=== PATIENT | female | born 1995 | race Caucasian/White ===

== ENCOUNTER 2019-05-10 16:19 | Inpatient (IN) | payer MEDICAID ==
[~2019-05-10] VITALS: Ht 165.1 cm; Wt 86.0 kg
[~2019-05-10 16:19] MED LIST: AMOXICILLIN500 M2 PO; AMOXICILLIN500 MG PO; AUGMENTIN 400 M1 CTB PO; BIRTH CONTROL1 EAC1 PO; CIPRODEX 0.3%-7.5 ML OT; DEPAKOTE DR500 MG; Depakote250 MG; HYDROCODONE BIT1 T11 PO; MOTRIN400 MG PO; MOTRIN800 MG PO; NAPROSYN500 MG PO; NO DAILY MEDS; ZANTAC150 MG PO; ZITHROMAX Z PA250 MG PO
[2019-05-10 16:20] VITALS: BP 154/105
--- NOTE | 2019-05-10 16:33 | NUR ---
PT PLACED ON CONTINUOUS PULSE OX, NIBP
--- NOTE | 2019-05-10 17:01 | NUR ---
PA IN TO EVALUATE PT
--- NOTE | 2019-05-10 17:04 | NUR ---
WHEN PA WENT INTO EVALUATE PT, PT ADMITTED TO PA THAT SHE VAPED
--- NOTE | 2019-05-10 17:30 | NUR ---
RAPID FLU SWAB OBATINED, ORDERED, SENT TO LAB, PT TOLERATED WELL
--- NOTE | 2019-05-10 17:40 | NUR ---
RESP IN TO ADMINISTER NEBULIZER TREATMENT, IV ACCESS ATTEMPTED X 2 UNSUCCESSFUL, 2X2 APPLIED, PRESSURE HELD, NO BLEEDING NOTED, PT TOLERATED WELL. LAB AT BEDSIDE TO DRAW LAB WORK ORDERED, UA REQUESTED
[2019-05-10 18:09] LABS: BASO # 0.1 10*3/uL (0.0-0.1); BASO % 0.8 % (0.0-1.0); EOS # 0.8 10*3/uL (0.0-0.4); EOS % 8.2 % (1.0-4.0); HEMATOCRIT 42.2 % (37.0-47.0); HEMOGLOBIN 13.3 g/dl (12.0-16.0); LYMPH # 1.7 10*3/uL (1.3-4.4); LYMPH % 18.1 % (27.0-41.0); MEAN CELL VOLUME 84.1 fl (81.0-99.0); MEAN CORPUSCULAR HGB 26.5 pg (27.0-31.0); MEAN CORPUSCULAR HGB CONC 31.5 g/dl (33.0-37.0); MONO # 0.5 10*3/uL (0.1-1.0); MONO % 5.1 % (3.0-9.0); NEUT # 6.5 10*3/uL (2.3-7.9); NEUT % 67.6 % (47.0-73.0); PLATELET COUNT AUTOMATED 274 10*3/uL (130-400); RED BLOOD COUNT 5.02 10*6/uL (4.10-5.10); RED CELL DISTRI WIDTH 13.9 % (0-14.5); WHITE BLOOD COUNT 9.6 10*3/uL (4.8-10.8)
[2019-05-10 18:22] VITALS: BP 133/85
[2019-05-10 18:25] LABS: ALBUMIN 4.3 gm/dl (3.1-4.5); ALKALINE PHOSPHATASE 151 U/L (45-117); BUN 12 mg/dl (7-24); CHLORIDE 102 mmol/L (98-107); CREATININE 0.93 mg/dL (0.55-1.02); SGOT/AST 14 IU/L (3-35); SGPT/ALT 23 U/L (12-78); SODIUM 137 mmol/L (136-145); TOTAL PROTEIN 8.8 gm/dL (6.4-8.2)
--- NOTE | 2019-05-10 18:31 | NUR ---
PT RESTING QUIETLY, STATES NEBULIZER TREATMENT HELPED, MOTHER AT BEDSIDE, CALL AMBROCIO IN REACH, WILL CONTINUE TO MONITOR PT
--- NOTE | 2019-05-10 19:10 | NUR ---
CHEST XRAY COMPLETE ORDERED
--- NOTE | 2019-05-10 19:26 | NUR ---
REPORT TO ROSA MASSEY, CARE TRANSFERRED
--- NOTE | 2019-05-10 21:24 | NUR ---
SPOKE WITH BRYSON VIVAR TO ADVISE OF ETA TO ROOM.
[2019-05-10 21:28] VITALS: BP 137/90
[2019-05-10 21:35] VITALS: BP 120/74
--- NOTE | 2019-05-10 21:35 | NUR ---
REPORT TO BRYSON VIVAR AT THE BEDSIDE.
--- NOTE | 2019-05-10 21:35 | NUR ---
A 23, admitted to , under the services of MILDAIS Baker DO with a diagnosis of CHEMICAL PNEUMONITIS. Chief complaint is SHORTNESS OF BREATH FOR AROUND 2 MONTHS WORSENING. Patient arrived via stretcher from ER. Monitor applied. Initial assessment completed. Vital signs taken and recorded. MILADIS BAKER DO notified of admission to the unit. Orders received. See assessment for past medical history, medications and allergies. Patient and/or family oriented to unit. [facility] visitation policy reviewed. Clothing/patient valuable form completed. HANS WALLS
[2019-05-11] VITALS: BP 147/73; BP 148/89
[2019-05-11 08:00] VITALS: BP 128/76
[2019-05-11 08:29] LABS: HEMATOCRIT 36.2 % (37.0-47.0); HEMOGLOBIN 11.7 g/dl (12.0-16.0); MEAN CELL VOLUME 83.8 fl (81.0-99.0); MEAN CORPUSCULAR HGB 27.1 pg (27.0-31.0); MEAN CORPUSCULAR HGB CONC 32.3 g/dl (33.0-37.0); MEAN PLATELET VOLUME 11.9 fl (9.6-12.3); PLATELET COUNT AUTOMATED 259 10*3/uL (130-400); RED BLOOD COUNT 4.32 10*6/uL (4.10-5.10); RED CELL DISTRI WIDTH 13.9 % (0-14.5); WHITE BLOOD COUNT 7.5 10*3/uL (4.8-10.8)
[2019-05-11 08:47] LABS: ALKALINE PHOSPHATASE 126 U/L (45-117); BUN 10 mg/dl (7-24); CHLORIDE 108 mmol/L (98-107); CREATININE 0.91 mg/dL (0.55-1.02); POTASSIUM 3.6 mmol/L (3.5-5.1); SGOT/AST 4 IU/L (3-35); SGPT/ALT 19 U/L (12-78); SODIUM 140 mmol/L (136-145)
[2019-05-11 08:52] LABS: PLATELET SUFFICIENCY NORMAL (NORMAL); TOTAL CELLS COUNTED 100 #CELLS
[2019-05-11 12:00] VITALS: BP 142/82
--- NOTE | 2019-05-11 13:10 | NUR ---
DR. LEON AWARE OF CONSULT.
[2019-05-11 16:00] VITALS: BP 112/65
[2019-05-11 20:00] VITALS: BP 117/73
--- NOTE | 2019-05-11 20:09 | NUR ---
1949 RESTING IN BED WATCHING TV. HEP LOCK INTACT. NO C/O'S VOICED AT PRESENT.
--- NOTE | 2019-05-11 21:29 | NUR ---
A 23, admitted to , under the services of MILADIS Baker DO with a diagnosis of CHEST PAIN. Chief complaint is SUDDEN ONSET MIDSTERNAL CHEST PAIN, NOW RELIEVED. . Patient arrived via bed from ER. Monitor applied. Initial assessment completed. Vital signs taken and recorded. MILADIS BAKER DO notified of admission to the unit. Orders received. See assessment for past medical history, medications and allergies. Patient and/or family oriented to unit. [facility] visitation policy reviewed. Clothing/patient valuable form completed. RAKAN CHAVEZ
--- NOTE | 2019-05-11 23:06 | NUR ---
PATIENT IS AAOX3, RESTING IN BED WITH EASY AND REGULAR RESPERS ON 2L VIA NASAL CANNULA. ASSESSMENT IS COMPLETE WITH NO C/O OR S/S OF DISTRESS NOTED AT THIS TIME. BED IS LOW, LOCKED, AND CALL LIGHT IS WITHIN REACH. WILL CONTINUE TO MONITOR, SEE SHIFT ASSESSMENT.
[2019-05-12] VITALS: BP 117/46
--- NOTE | 2019-05-12 06:32 | NUR ---
24 HOUR CHART CHECK COMPLETE.
[2019-05-12 07:17] LABS: BASO % 0.1 % (0.0-1.0); HEMATOCRIT 35.8 % (37.0-47.0); HEMOGLOBIN 11.5 g/dl (12.0-16.0); LYMPH # 0.8 10*3/uL (1.3-4.4); LYMPH % 6.8 % (27.0-41.0); MEAN CELL VOLUME 84.6 fl (81.0-99.0); MEAN CORPUSCULAR HGB 27.2 pg (27.0-31.0); MEAN CORPUSCULAR HGB CONC 32.1 g/dl (33.0-37.0); MEAN PLATELET VOLUME 12.1 fl (9.6-12.3); MONO # 0.4 10*3/uL (0.1-1.0); MONO % 3.3 % (3.0-9.0); NEUT # 10.8 10*3/uL (2.3-7.9); NEUT % 89.5 % (47.0-73.0); PLATELET COUNT AUTOMATED 266 10*3/uL (130-400); RED BLOOD COUNT 4.23 10*6/uL (4.10-5.10); RED CELL DISTRI WIDTH 14.6 % (0-14.5)
[2019-05-12 08:00] VITALS: BP 124/78
[2019-05-12 08:03] LABS: BUN 14 mg/dl (7-24); CHLORIDE 107 mmol/L (98-107); CREATININE 0.86 mg/dL (0.55-1.02); POTASSIUM 4.3 mmol/L (3.5-5.1); SGOT/AST 11 IU/L (3-35); SGPT/ALT 21 U/L (12-78); SODIUM 139 mmol/L (136-145); TOTAL PROTEIN 8.1 gm/dL (6.4-8.2)
[2019-05-12 08:04] LABS: ALKALINE PHOSPHATASE 120 U/L (45-117)
[2019-05-12 12:00] VITALS: BP 130/86
--- NOTE | 2019-05-12 15:45 | NUR ---
HOME O2 ASSESSMENT: PRE BP: 117/78, HR 101, RR 20, PULSE OX 94% ON ROOM AIR AT REST. AMBULATED PATIENT IN HALLWAY, PULSE OX 92% ON ROOM AIR THROUGHOUT AMBULATION. POST BP: 135/70, HR 138, RR 26, PULSE OX 93% ON ROOM AIR AT REST. RN NOTIFIED THAT PATIENT DOES NOT QUALIFY.
[2019-05-12 16:00] VITALS: BP 117/78
[2019-05-12 20:00] VITALS: BP 122/64
[2019-05-13] VITALS: BP 134/61
[2019-05-13 07:33] LABS: BUN 16 mg/dl (7-24); CHLORIDE 110 mmol/L (98-107); POTASSIUM 4.4 mmol/L (3.5-5.1); SODIUM 137 mmol/L (136-145)
[2019-05-13 08:00] VITALS: BP 115/72; BP 141/84
--- NOTE | 2019-05-13 08:44 | NUR ---
PT ASSESSED 05/12/19 FOR HOME O2, PER DR. LEON. PT DID NOT QUALIFY. DR. NUNO NOTIFIED. ASSESSMENT NOT DONE FOR 08-13-18, ASKED TO CANCEL IT.
--- NOTE | 2019-05-13 09:00 | NUR ---
RESTING IN BED WITH EYES CLOSED. AWAKENS EASILY. OXYGEN IN USE. PT HAS STUDENT NURSE TODAY ALSO. NO C/O AT THIS TIME. CALL LIGHT IN REACH. WILL CON'T TO MONITOR.
--- NOTE | 2019-05-13 09:00 | NUR ---
Legal Practice Manager in to talk to patient. Patient states lives at home with mom. There are few steps in the home. Physician: none Pharmacy: [facility] Home health services: none Patient's level of ADLs: INDEPENDENT Patient has working utilities: all working DME: none Follow-up physician's appointment after d/c: will be made by hospitalist nurse director upon discharge Does patient want to access PORTAL?: no Discharge plan discussed with patient, she states she lives at home with her mom, patient is independent in adls and ambualtion, she stated she doesn't have any insurance and was visited by Destiney from [employer] to fill out papers for help with the cost of the hospital stay. also discussed with her if she is able to afford medications, she stated she is able to afford medications at this time, case management will follow. KIMBERLY MAYA
--- NOTE | 2019-05-13 10:20 | NUR ---
TOLERATED ROUTINE MED WITH NO PROBLEM. NO C/O AT THIS TIME. CALL LIGHT IN REACH.
[2019-05-13 12:00] VITALS: BP 122/58
[2019-05-13] MEDS ORDERED: PREDNISONE10 MG PO (12:36)
[2019-05-13] MEDS ORDERED: FLOVENT HFA10.6 GM INH (12:36)
[2019-05-13] MEDS ORDERED: AVPAK AZITHROM250 MG PO (12:36)
[2019-05-13] MEDS ORDERED: MUCINEX1200 M1 PO (12:36)
--- NOTE | 2019-05-13 16:00 | NUR ---
Discharge instructions reviewed with patient/family. Patient receptive and verbalizes understanding. Follow-up care arranged. Written instructions given to patient/family. HEPLOCK REMOVED 2X2 APPLIED. AMBULATORY OFF THE FLOOR WITH VISITOR AT HER SIDE. CHRISTOPHER VAZQUEZ
== END 2019-05-13 16:00 | disposition home or self-care (01) | DRG 872 ==
LOC: ED 16:19 → EDHOLD 20:18 → 4E 20:18
PROVIDERS: Family Medicine; Physician Assistant; Student in an Organized Health Care Education/Training Program; ADMIT Emergency Medicine
DX: A41.9 Sepsis, unspecified organism (principal); J68.0 Bronchitis and pneumonitis due to chemicals, gases, fumes and vapors; J45.901 Unspecified asthma with (acute) exacerbation; J98.11 Atelectasis; J20.8 Acute bronchitis due to other specified organisms; E87.8 Other disorders of electrolyte and fluid balance, not elsewhere classified; R73.9 Hyperglycemia, unspecified; M41.9 Scoliosis, unspecified; F17.299 Nicotine dependence, other tobacco product, with unspecified nicotine-induced disorders; F41.9 Anxiety disorder, unspecified; R09.02 Hypoxemia; Z71.6 Tobacco abuse counseling; Z90.49 Acquired absence of other specified parts of digestive tract; Z82.49 Family history of ischemic heart disease and other diseases of the circulatory system; Z79.899 Other long term (current) drug therapy

== ENCOUNTER → 2019-05-31 | Outpatient (CLI) | payer MEDICAID ==
[~2019-05-31] MED LIST changes: +AVPAK AZITHROM250 MG PO; +FLOVENT HFA10.6 GM INH; +MUCINEX1200 M1 PO; +PREDNISONE10 MG PO
== END | disposition home or self-care (01) ==
LOC: RESCLI 01:24
DX: Z12.4 Encounter for screening for malignant neoplasm of cervix (principal); J45.909 Unspecified asthma, uncomplicated; E66.09 Other obesity due to excess calories; G47.10 Hypersomnia, unspecified; Z68.33 Body mass index [BMI] 33.0-33.9, adult; Z79.899 Other long term (current) drug therapy; Z88.8 Allergy status to other drugs, medicaments and biological substances

== ENCOUNTER 2022-05-01 14:52 | Emergency (ER) | payer BC, MEDICAID ==
[~2022-05-01] VITALS: Wt 83.0 kg
[2022-05-01 15:01] VITALS: BP 143/83
[2022-05-01 15:46] LABS: BILIRUBIN Negative (Negative); BLOOD Negative (Negative); CLARITY Cloudy (Clear); COLOR Yellow (Yellow); GLUCOSE Negative (Negative); KETONE Negative (Negative); LEUKO ESTERASE 2+ (Negative); NITRITE Negative (Negative); UROBILINOGEN 0.2 E.U./dl (0.0-1.0)
[2022-05-01 15:46] LABS: BASO # 0.1 10*3/uL (0.0-0.1); BASO % 0.9 % (0.0-1.0); EOS # 0.1 10*3/uL (0.0-0.4); EOS % 1.7 % (1.0-4.0); HEMATOCRIT 39.1 % (37.0-47.0); LYMPH # 1.9 10*3/uL (1.3-4.4); LYMPH % 24.6 % (27.0-41.0); MEAN CELL VOLUME 88.1 fl (81.0-99.0); MEAN CORPUSCULAR HGB 28.8 pg (27.0-31.0); MEAN CORPUSCULAR HGB CONC 32.7 g/dl (33.0-37.0); MEAN PLATELET VOLUME 12.1 fl (9.6-12.3); MONO # 0.4 10*3/uL (0.1-1.0); MONO % 4.8 % (3.0-9.0); NEUT # 5.2 10*3/uL (2.3-7.9); NEUT % 67.9 % (47.0-73.0); PLATELET COUNT AUTOMATED 216 10*3/uL (130-400); RED BLOOD COUNT 4.44 10*6/uL (4.10-5.10); RED CELL DISTRI WIDTH 12.8 % (0-14.5); WHITE BLOOD COUNT 7.7 10*3/uL (4.8-10.8)
[2022-05-01 16:04] LABS: ALKALINE PHOSPHATASE 102 U/L (45-117); BUN 14 mg/dl (7-24); CHLORIDE 109 mmol/L (98-107); CREATININE 0.73 mg/dL (0.55-1.02); LIPASE 85 U/L (73-393); POTASSIUM 3.5 mmol/L (3.5-5.1); SGOT/AST 9 IU/L (3-35); SGPT/ALT 19 U/L (12-78); SODIUM 138 mmol/L (136-145); TOTAL PROTEIN 7.5 gm/dL (6.4-8.2)
[2022-05-01 16:18] LABS: BACTERIA 2+; EPITHELIAL CELLS TNTC
[2022-05-01] MEDS ORDERED: MACROBID100 M1 PO (16:36)
== END 2022-05-01 16:38 | disposition home or self-care (01) ==
LOC: ED 14:52
PROVIDERS: Nurse Practitioner Family
DX: N39.0 Urinary tract infection, site not specified (principal); R10.12 Left upper quadrant pain; Z90.49 Acquired absence of other specified parts of digestive tract; Z98.890 Other specified postprocedural states; F17.200 Nicotine dependence, unspecified, uncomplicated

== ENCOUNTER 2022-12-03 11:27 | Emergency (ER) | payer BC ==
[~2022-12-03] VITALS: Wt 79.4 kg
[~2022-12-03 11:27] MED LIST changes: +MACROBID100 M1 PO
[2022-12-03 11:39] VITALS: BP 134/77
== END 2022-12-03 11:53 | disposition home or self-care (01) ==
LOC: ED 11:27
DX: S50.861A Insect bite (nonvenomous) of right forearm, initial encounter (principal); R11.0 Nausea; R68.83 Chills (without fever); Z90.49 Acquired absence of other specified parts of digestive tract; Z98.890 Other specified postprocedural states; F17.200 Nicotine dependence, unspecified, uncomplicated; J45.909 Unspecified asthma, uncomplicated; F90.9 Attention-deficit hyperactivity disorder, unspecified type; W57.XXXA Bitten or stung by nonvenomous insect and other nonvenomous arthropods, initial encounter; Y93.89 Activity, other specified; Y92.89 Other specified places as the place of occurrence of the external cause; Y99.8 Other external cause status